=== PATIENT | female | born 1990 | race Caucasian/White ===

== ENCOUNTER 2020-05-22 18:15 | Outpatient (REF) | payer BC, SELFPAY ==
[2020-05-22 19:10] LABS: TSH 1.92 uIU/mL (0.36-3.74)
[2020-05-23 18:15] LABS: Thyroperoxidase Antibody 55 U/mL (<=60)
== END 2020-05-22 18:16 | disposition home or self-care (01) ==
LOC: NCHCN 18:15
PROVIDERS: PCP Physician Assistant; Visit Provider Internal Medicine
DX: L50.9 Urticaria, unspecified (principal)
CPT/HCPCS: 84443; 86376

== ENCOUNTER 2020-07-28 08:49 | Outpatient (REF) | payer BC, SELFPAY ==
[2020-07-28 16:14] LABS: Calculated LDL 115 mg/dL (<100); Cholesterol 173 mg/dL (<200); Glucose 92 mg/dL (74-106); HDL Cholesterol 51 mg/dL (40-60); Triglyceride 39 mg/dL (<150)
== END 2020-07-28 08:50 | disposition home or self-care (01) ==
LOC: NCHCN 08:49
PROVIDERS: PCP Nurse Practitioner Family; Visit Provider Nurse Practitioner Family
DX: Z13.220 Encounter for screening for lipoid disorders (principal); Z13.1 Encounter for screening for diabetes mellitus
CPT/HCPCS: 80061; 82947

== ENCOUNTER 2020-07-29 18:13 | Outpatient (CLI) | payer BC, SELFPAY ==
--- NOTE | 2020-07-29 | DI.RAD_ITS ---
Exam(s) XR ANKLE LT COMPLETE EXAM: XR ANKLE LT COMPLETE CLINICAL HISTORY: LT ANKLE PAIN, M25.572 TECHNIQUE: 2D digital imaging was performed. COMPARISON: No exams were available for comparison FINDINGS: BONES: No acute fracture is present. No bony destructive lesion is seen. There is mild spurring from the medial malleolus and anterior tibia. No talar dome defect is seen. JOINTS:The ankle mortise is normally aligned. There is no significant joint space narrowing. SOFT TISSUE: Normal. IMPRESSION: Minimal degenerative changes. DATA REPOSITORY: RADIATION DOSE DELIVERED:
== END 2020-07-29 18:33 ==
PROVIDERS: PCP Nurse Practitioner Family; Visit Provider Nurse Practitioner Family
DX: M25.572 Pain in left ankle and joints of left foot (principal); M19.072 Primary osteoarthritis, left ankle and foot
CPT/HCPCS: 73610